=== PATIENT | female | born 1945 | race Caucasian/White ===

== ENCOUNTER 2021-01-10 22:46 | Emergency (ER) | payer OTHER ==
[2021-01-10] MEDS ORDERED: Ondansetron 4 MG/2 ML SDV ONE (22:49)
--- NOTE | 2021-01-10 22:55 | EDM.PDOC ---
ED HPI GENERAL MEDICAL PROBLEM - General Chief Complaint: Trauma Stated Complaint: TRAUMA CODE Time Seen by Provider: 01/10/21 22:49 Source of Information: Reports: EMS History Limitations: Reports: Altered Mental Status - History of Present Illness INITIAL COMMENTS - FREE TEXT/NARRATIVE: Is a 75-year-old female brought in today had a fall down steps. EMS And patient had obvious deformity of the right wrist and was only ANO x1. She would move all extremities but is not giving history. Per family at baseline patient is ANO x3 and able to follow commands. Patient airways intact she is moving all extremities. right wrist/arm Pain Score (Numeric/FACES): 8 - Related Data Allergies Allergy/AdvReac Type Severity Reaction Status Date / Time No Known Allergies Allergy Verified 01/10/21 23:18 Home Meds: Home Meds . [No Known Home Meds] 01/10/21 [History] Review of Systems - Review of Systems Review Of Systems: Unable To Obtain Reason Not Obtained: AMS ED EXAM, GENERAL - Physical Exam Exam: See Below Exam Limited By: Altered Mental Status General Appearance: Alert, Mild Distress Eye Exam: Bilateral Eye: EOMI, PERRL Respiratory/Chest: No Respiratory Distress, Lungs Clear, Normal Breath Sounds Cardiovascular: Normal Peripheral Pulses, Regular Rate, Rhythm Peripheral Pulses: 2+: Radial (L), Radial (R) GI/Abdominal: Normal Bowel Sounds, Soft, Non-Tender Extremities: No: Normal Inspection (No deformity right wrist) Neurological: Alert (Oriented x1 to name) ED TRAUMA PROCEDURES - Splinting Right Upper Extremity Splint Site: right forearm Pre-Procedure NV Status: Normal Post-Procedure NV Status: Normal Splint Material: Fiberglass Splint Design: Volar, Extensor Applied & Form Fitted By: Provider Provider Post-Splint Application NV Check: NV Status Normal Complications: No Course - Vital Signs Last Recorded V/S: Last Vital Signs Temp 98.1 F 01/11/21 01:30 Pulse 96 01/11/21 02:44 Resp 16 01/11/21 02:44 BP 112/51 L 01/11/21 02:44 Pulse Ox 98 01/11/21 02:44 - Orders/Labs/Meds Orders: Active Orders 24 hr Category Date Time Status Wrist Comp Min 3V Rt [CR] Stat Exams 01/11/21 02:39 Ordered CORONAVIRUS COVID-19 PRISCILLA [MOLEC] Stat Lab 01/11/21 02:00 Received DME for Discharge [COMM] Stat Oth 01/11/21 02:51 Ordered Labs: Laboratory Tests 01/10/21 01/10/21 01/10/21 Range/Units 22:52 22:52 23:40 WBC 8.91 (4.0-11.0) K/uL RBC 4.37 (4.30-5.90) M/uL Hgb 12.6 (12.0-16.0) g/dL Hct 38.5 (36.0-46.0) % MCV 88.1 (80.0-98.0) fL MCH 28.8 (27.0-32.0) pg MCHC 32.7 (31.0-37.0) g/dL RDW Std Deviation 42.5 (28.0-62.0) fl RDW Coeff of Krish 13 (11.0-15.0) % Plt Count 287 (150-400) K/uL MPV 9.70 (7.40-12.00) fL Neut % (Auto) 42.3 L (48.0-80.0) % Lymph % (Auto) 45.5 H (16.0-40.0) % [place] % (Auto) 10.5 (0.0-15.0) % Eos % (Auto) 1.5 (0.0-7.0) % Baso % (Auto) 0.2 (0.0-1.5) % Neut # (Auto) 3.8 (1.4-5.7) K/uL Lymph # (Auto) 4.1 H (0.6-2.4) K/uL [place] # (Auto) 0.9 H (0.0-0.8) K/uL Eos # (Auto) 0.1 (0.0-0.7) K/uL Baso # (Auto) 0.0 (0.0-0.1) K/uL Nucleated RBC % 0.0 /100WBC Nucleated RBCs # 0 K/uL INR 1.06 APTT 21.6 (18.6-31.3) SEC Sodium 142 (136-145) mmol/L Potassium 3.7 (3.5-5.1) mmol/L Chloride 106 (98-107) mmol/L Carbon Dioxide 23.2 (21.0-32.0) mmol/L BUN 13 (7.0-18.0) mg/dL Creatinine 1.0 (0.6-1.0) mg/dL Est Cr Clr Drug Dosing TNP Estimated GFR (MDRD) 54.2 ml/min Glucose 111 H (74-106) mg/dL Calcium 8.8 (8.5-10.1) mg/dL Total Bilirubin 0.5 (0.2-1.0) mg/dL AST 19 (15-37) IU/L ALT 22 (14-63) IU/L Alkaline Phosphatase 73 (46-116) U/L Total Protein 6.9 (6.4-8.2) g/dL Albumin 3.8 (3.4-5.0) g/dL Globulin 3.1 (2.6-4.0) g/dL Albumin/Globulin Ratio 1.2 (0.9-1.6) Ethyl Alcohol < 3.0 mg/dL Meds: Medications Discontinued Medications Generic Name Dose Route Start Last Admin Trade Name Kyleq PRN Reason Stop Dose Admin Diphenhydramine HCl 12.5 mg 01/10/21 23:35 01/10/21 23:40 Diphenhydramine 50 Mg/Ml Sdv IVPUSH 01/10/21 23:36 12.5 mg ONETIME ONE Administration Hydromorphone HCl 1 mg 01/11/21 02:25 01/11/21 02:32 Hydromorphone 1 Mg/Ml Syringe IVPUSH 01/11/21 02:26 1 mg ONETIME ONE Administration Iopamidol 100 ml 01/10/21 23:06 01/10/21 23:29 Iopamidol 755 Mg/Ml 100 Ml Bottle IVPUSH 01/10/21 23:07 100 ml ONETIME ONE Administration Metoclopramide HCl 10 mg 01/10/21 23:35 01/10/21 23:40 Metoclopramide 10 Mg/2 Ml Sdv IVPUSH 01/10/21 23:36 10 mg ONETIME ONE Administration Midazolam HCl 1 mg 01/11/21 02:25 01/11/21 02:32 Midazolam 1 Mg/Ml 2 Ml Sdv IVPUSH 01/11/21 02:26 1 mg ONETIME ONE Administration Ondansetron HCl Confirm 01/10/21 22:49 01/10/21 22:58 Ondansetron 4 Mg/2 Ml Sdv Administered 01/10/21 22:50 Not Given Dose 4 mg .ROUTE .STK-MED ONE Ondansetron HCl 4 mg 01/10/21 22:57 01/10/21 23:40 Ondansetron 4 Mg/2 Ml Sdv IVPUSH 01/10/21 22:58 4 mg ONETIME ONE Administration - Re-Assessments/Exams Free Text/Narrative Re-Assessment/Exam: 01/11/21 02:[address] head C-spine chest abdomen pelvis and x-rays only show a distal wrist fracture. We were able to place in a splint and reduce slightly. We called multiple hospitals in [place] from [facility] to [place]. Due to current bed situation and [place] there [place] limited space to transfer patient. We were able to speak to [facility] who can set patient. We try to admit patient here but due to us not having orthopedics the trauma surgery was done for possible 7 the patient. We also tried admit the medicine was not felt comfortable since we cannot get MRI and peds mental status. Patient otherwise is starting to wake up and regain some consciousness but still has his wrist fracture. We will have to transfer for observation to [facility] as it is our nearest facility tech and assessed the patient. Departure - Departure Time of Disposition: 02:15 Disposition: DC/Tfer to Acute Hospital 02 Condition: Good Clinical Impression: Wrist fracture, Trauma - Discharge Information Forms: ED Department Discharge Critical Care Note - Critical Care Note Total Time (mins): 45 Comments: Critical Care Procedure Note Authorized and Performed by: Dr. Lewis Total critical care time: Approximately Due to a high probability of clinically significant, life threatening d eterioration, the patient required my highest level of preparedness to intervene emergently and I personally spent this critical care time directly and personally managing the patient. This critical care time included obtaining a history; examining the patient; pulse oximetry; ordering and review of studies; arranging urgent treatment with development of a management plan; evaluation of patient's response to treatment; frequent reassessment; and, discussions with other providers. This critical care time was performed to assess and manage the high probability of imminent, life-threatening deterioration that could result in multi-organ failure. It was exclusive of separately billable procedures and treating other patients and teaching time. Sepsis Event Note (ED) - Focused Exam Vital Signs: Vital Signs Temp Pulse Resp BP Pulse Ox 01/11/21 02:44 96 16 112/51 L 98 01/11/21 02:37 96 16 116/49 L 96 01/11/21 01:30 98.1 F 96 16 108/55 L 01/11/21 01:00 97.7 F 102 H 16 118/50 L 97 01/10/21 22:50 97.5 F 89 18 137/69 98 - My Orders Last 24 Hours: My Active Orders 01/11/21 02:00 CORONAVIRUS COVID-19 PRISCILLA [MOLEC] Stat 01/11/21 02:39 Wrist Comp Min 3V Rt [CR] Stat 01/11/21 02:51 DME for Discharge [COMM] Stat - Assessment/Plan Last 24 Hours: My Active Orders 01/11/21 02:00 CORONAVIRUS COVID-19 PRISCILLA [MOLEC] Stat 01/11/21 02:39 Wrist Comp Min 3V Rt [CR] Stat 01/11/21 02:51 DME for Discharge [COMM] Stat Plan: Patient is a 75-year-old female brought in today at the fall down steps. Patient is obvious deformity of the right wrist is ANO x1 was at her baseline she is normally ANO x3. Will obtain CT head and C-spine and reassess patient.
[2021-01-10] MEDS ORDERED: Ondansetron 4 MG/2 ML SDV IVPUSH ONE (22:57)
[2021-01-10] MEDS ORDERED: Iopamidol 755 Mg/ML 100 ML Bottle IVPUSH ONE (23:06)
[2021-01-10 23:34] LABS: BLOOD UREA NITROGEN,BUN 13 mg/dL (7.0-18.0); CARBON DIOXIDE,CO2 23.2 mmol/L (21.0-32.0); CHLORIDE,CL 106 mmol/L (98-107); GLUCOSE RANDOM 111 mg/dL (74-106); POTASSIUM,K 3.7 mmol/L (3.5-5.1); SODIUM,NA 142 mmol/L (136-145)
[2021-01-10] MEDS ORDERED: Metoclopramide 10 MG/2 ML SDV IVPUSH ONE (23:35)
[2021-01-10] MEDS ORDERED: diphenhydrAMINE 50 MG/ML SDV IVPUSH ONE (23:35)
--- NOTE | 2021-01-10 23:35 | CR ---
INDICATION: Fall down stairs. COMPARISON: None. FINDINGS/IMPRESSION: Right wrist, three views. Acute, comminuted, nondisplaced, impacted intra-articular fracture of the distal right radius with mild dorsal angulation of distal fragments. Nondisplaced fracture of the ulnar styloid also noted. No wrist dislocation. Probable small fracture fragment along the dorsal aspect of the wrist on the lateral view may represent a minimally displaced avulsion fracture of the triquetrum. Soft tissue swelling is present about the wrist. Dictated by Ramiro Gonzalez MD @ 01/10/2021 11:34:26 PM Dictated by: Ramiro Gonzalez MD @ 01/10/2021 23:34:48 (Electronically Signed)
--- NOTE | 2021-01-10 23:44 | CT ---
INDICATION: Fall down stairs. CT HEAD WITHOUT CONTRAST TECHNIQUE: Multiple axial CT images were performed through the head without intravenous contrast administration. COMPARISON: No previous studies are currently available for comparison. FINDINGS: No acute intracranial hemorrhage is identified. No extra-axial collections are evident and there is no mass effect or midline shift. There is mild diffuse age-related brain atrophy. Ventricular size and configuration are within normal limits for the patient`s age. Hargrove-white differentiation is within normal limits. There is patchy hypodensity in the periventricular white matter, a nonspecific finding which most likely reflects chronic small vessel ischemic change. Osseous structures are within normal limits and no fractures are seen. Included portions of the paranasal sinuses and mastoid air cells are normally aerated. IMPRESSION: 1. No acute intracranial abnormality identified. 2. Mild age-related brain atrophy and white matter hypodensity consistent with chronic small vessel ischemic change. ADRIANA JANSEN MD [facility] Please note that all CT scans at this facility use dose modulation, iterative reconstruction, and/or weight-based dosing when appropriate to reduce radiation dose to as low as reasonably achievable. Dictated by: Rmairo Jansen MD @ 01/10/2021 23:43:43 (Electronically Signed)
--- NOTE | 2021-01-10 23:50 | CT ---
INDICATION: Fall down stairs. CT CERVICAL SPINE WITHOUT CONTRAST TECHNIQUE: Multidetector axial CT imaging was performed through the cervical spine, without contrast. Sagittal and coronal reconstructions were generated. FINDINGS: No acute fractures are identified. Multilevel degenerative change is noted in the cervical spine, including degenerative disc disease at C4-5, C5-6, and C6-7, and scattered facet joint degenerative changes. Osseous alignment is within normal limits and no subluxation is seen. Developmental partial fusion of C7 and T1 is noted. Prevertebral soft tissues are unremarkable. Included portions of the airway and lung apices are within normal limits. IMPRESSION: 1. No fracture, subluxation, or other acute finding identified. 2. Cervical spondylosis, as noted above. ADRIANA JANSEN MD [facility] Please note that all CT scans at this facility use dose modulation, iterative reconstruction, and/or weight-based dosing when appropriate to reduce radiation dose to as low as reasonably achievable. Dictated by: Ramiro Jansen MD @ 01/10/2021 23:49:27 (Electronically Signed)
--- NOTE | 2021-01-10 23:53 | CR ---
Indication: Fall, pain Technique: Right knee 2 views Comparison: None Findings: Mild degenerative changes. No fracture or joint effusion. No malalignment. Impression: No sign of acute injury. Dictated by Wayne Finley MD @ 01/10/2021 11:51:[address] Wayne Finley @ Jan 10 2021 11:51PM
--- NOTE | 2021-01-11 00:20 | CT ---
INDICATION: Fall down stairs. CT CHEST, ABDOMEN, AND PELVIS WITH CONTRAST TECHNIQUE: Multidetector CT imaging was performed through the chest, abdomen, and pelvis following intravenous contrast administration using 100 mL Isovue 370. Coronal and sagittal reconstructions were generated. COMPARISON: None. FINDINGS: Lungs and airways: Mild bibasilar atelectatic changes. No confluent infiltrates, suspicious nodules, or masses. Central airways are patent. Pleura and pleural spaces: No pleural effusions or pneumothorax. Heart and mediastinum: Normal heart size. No significant pericardial effusion. Small hypodense nodule in the left thyroid lobe. No pathologically enlarged mediastinal lymph nodes. Vascular structures: Normal caliber aorta. No evidence of traumatic aortic injury. Mild aortoiliac atherosclerotic calcifications. Chest wall and axillae: No mass or axillary lymphadenopathy. Liver and spleen: Multiple liver cysts. Unremarkable spleen. Gallbladder and bile ducts: No gallbladder wall thickening or calcified gallstones. No biliary dilation identified. Pancreas, adrenals, and retroperitoneum: No pancreatic or adrenal mass. No pathologically enlarged lymph nodes identified in the abdomen or pelvis. Kidneys, ureters, and urinary bladder: No renal masses or hydronephrosis. No bladder mass or definite wall thickening. Gastrointestinal tract and peritoneum: Very small hiatal hernia. Normal caliber bowel without wall thickening or obstruction. Appendix not identified. No free air, abscess, or significant free fluid. Reproductive organs: Status post hysterectomy. No pelvic masses. Bones: Subacute or chronic fractures of the anterior right 6th and 7th ribs. No definite acute fractures. Spinal degenerative changes. Mild bilateral hip and shoulder DJD changes. IMPRESSION: 1. No acute intrathoracic or intraabdominal abnormality identified. No acute fractures are seen. 2. Nonacute findings as detailed above. ADRIANA JANSEN MD [facility] Dictated by Ramiro Jansen MD @ 01/11/2021 12:14:28 AM Please note that all CT scans at this facility use dose modulation, iterative reconstruction, and/or weight-based dosing when appropriate to reduce radiation dose to as low as reasonably achievable. Dictated by: Ramiro Jansen MD @ 01/11/2021 00:19:04 (Electronically Signed)
[2021-01-11] MEDS ORDERED: HYDROmorphone 1 MG/ML Syringe IVPUSH ONE (02:25)
[2021-01-11] MEDS ORDERED: Midazolam 1 MG/ML 2 ML SDV IVPUSH ONE (02:25)
--- NOTE | 2021-01-11 03:41 | CR ---
Indication: Postreduction Technique: Three views Comparison: Right wrist 01/10/2021 Findings: Interval placement of a plaster cast which obscures some fine bony detail. Transverse distal radial metaphyseal fracture redemonstrated without significant displacement on these views. Mild dorsal angulation of the distal fracture fragment. Dictated by Yaakov West MD @ 01/11/2021 3:39:[address] Yaakov West @ Jan 11 2021 3:39AM
== END 2021-01-11 03:57 ==
LOC: MW.ED 22:46
DX: S52.571A Other intraarticular fracture of lower end of right radius, initial encounter for closed fracture (principal); S52.614A Nondisplaced fracture of right ulna styloid process, initial encounter for closed fracture; Z20.822 Contact with and (suspected) exposure to COVID-19; W10.9XXA Fall (on) (from) unspecified stairs and steps, initial encounter
CPT/HCPCS: 29125; 36415; 70450; 71260; 72125; 73110; 73560; 74177; 80053; 80307; 85025; 85610; 85730; 87635; 96374; 96375; 99291; G0390; J1170; J1200; J2250; J2405; J2765; Q9967; U0002